=== PATIENT | female | born 1980 | race Caucasian/White ===

== ENCOUNTER 2018-03-04 18:46 | Emergency (ER) | payer OTHER ==
--- NOTE | 2018-03-04 19:22 | ERPHSYRPT ---
- History of Present Illness Time Seen by Provider: 03/04/18 19:17 Source: patient Exam Limitations: no limitations Patient Subjective Stated Complaint: INJURY TO RIGHT WRIST AFTER MOVING A PALLET TODAY Triage Nursing Assessment: AMBULATED TO ROOM PER SELF. SKIN W/D, COLOR NORMAL, RESP EASY. TENDERNESS NOTED TO RIGHT WRIST. SLIGHT SWELLING NOTED TO WRIST. ICE PACK APPLIED. Physician History: The patient is a left-handed 38-year-old female with her complaining that she injured her right wrist while at work at [employer] today. She lifted a pallet at her right wrist began to hurt. She did not fall on it nor did she hit it on anything. It hurts on the little finger side of her wrist. She took 2 ibuprofen about an hour ago. She does not request any pain medicine. She denies numbness or tingling. Her past medical history is significant for hypertension and anemia but she quit taking her medicines for these 2 illnesses. Occurred: this afternoon Method of Injury: twisted Quality: constant, aching, sharpness Severity of Pain-Max: moderate Severity of Pain-Current: moderate Extremities Pain Location: wrist: right Modifying Factors: Improves With: pain medication Associated Symptoms: none Allergies/Adverse Reactions: No Known Drug Allergies Allergy (Unverified 03/04/18 19:14) Home Medications: Amlodipine Besylate 5 mg [Norvasc 5 mg] 5 mg PO DAILY 03/04/18 [History] Ferrous Sulfate 325 mg [Feosol 325 mg] 325 mg PO DAILY 03/04/18 [History] Hx Tetanus, Diphtheria Vaccination/Date Given: Yes Hx Influenza Vaccination/Date Given: No Hx Pneumococcal Vaccination/Date Given: No - Review of Systems Constitutional: No Fever, No Chills Eyes: No Symptoms Ears, Nose, & Throat: No Symptoms Respiratory: No Cough, No Dyspnea Cardiac: No Chest Pain, No Edema, No Syncope Abdominal/Gastrointestinal: No Abdominal Pain, No Nausea, No Vomiting, No Diarrhea Genitourinary Symptoms: No Dysuria Musculoskeletal: Injury, Joint Pain, No Back Pain, No Neck Pain Skin: No Rash Neurological: No Dizziness, No Focal Weakness, No Sensory Changes Psychological: No Symptoms Endocrine: No Symptoms Hematologic/Lymphatic: No Symptoms Immunological/Allergic: No Symptoms All Other Systems: Reviewed and Negative - Past Medical History Pertinent Past Medical History: Yes Cardiac History: Hypertension Other Medical History: ANEMIA - Past Surgical History Past Surgical History: Yes Gastrointestinal: Cholecystectomy Female Surgical History: Section, Tubal Ligation - Social History Smoking Status: Current every day smoker How long have you smoked: 15 Exposure to second hand smoke: Yes Drug Use: none Patient Lives Alone: No - Female History Hx Last Menstrual Period: 02/13/18 Hx Now: No - Nursing Vital Signs Nursing Vital Signs: Initial Vital Signs Temperature 99.8 F 03/04/18 18:51 Pulse Rate 88 03/04/18 18:51 Respiratory Rate 16 03/04/18 18:51 Blood Pressure 187/124 03/04/18 18:51 O2 Sat by Pulse Oximetry 94 L 03/04/18 18:51 Pain Scale Pain Intensity 7 - Physical Exam General Appearance: alert Eyes, Ears, Nose, Throat Exam: moist mucous membranes Neck Exam: non-tender, supple Cardiovascular/Respiratory Exam: chest non-tender, normal breath sounds, regular rate/rhythm, no respiratory distress Abdominal Exam: non-tender, No guarding Back Exam: normal inspection, No vertebral tenderness Shoulder Exam: normal inspection Elbow/Forearm Exam: normal inspection Wrist Exam: soft tissue tenderness (ulnar side), No bone tenderness, No swelling Hand Exam: normal inspection Neuro/Tendon Exam: normal sensation, normal motor functions Mental Status Exam: alert, oriented x 3, cooperative Skin Exam: normal color, warm, dry SpO2 Interpretation: normal SpO2: 94 Oxygen Delivery: Room Air - Radiology Exams Right Wrist X-ray Interpretation: Interpreted by me, Negative Ordered Tests: Active Orders 24 hr Category Date Time Status WRIST (MIN 3 VIEWS) Stat Exams 03/04/18 19:22 Taken - Progress Progress: unchanged Progress Note: 03/04/18 19:57 Pt declined analgesics. Counseled pt/family regarding: diagnosis, rad results - Departure Time of Disposition: 19:58 Departure Disposition: Home Clinical Impression: Strain of right wrist Condition: Stable Critical Care Time: No Additional Instructions: You strained your right wrist at work today. The x-ray was negative. Apply ice as needed. Take naproxen 500 mg 2 times a day as needed. You were given a work excuse for tomorrow, 03/05/18. Follow-up with your primary medical doctor as needed. Prescriptions: Naproxen 500 mg PO BID PRN #30 tablet.
[2018-03-04 20:16] VITALS: BP 172/99; PULSE 72; O2SAT 99
--- NOTE | 2018-03-05 08:41 | XRAY ---
Indication: Pain following injury. Comparison: None 3 views of the right wrist demonstrates mild 1st MCP degenerative changes and mild radiocarpal joint space narrowing. No other bony, articular, or soft tissue abnormalities.
== END 2018-03-04 20:10 | disposition home or self-care (01) ==
LOC: ED 18:46
DX: S66.911A Strain of unspecified muscle, fascia and tendon at wrist and hand level, right hand, initial encounter (principal); X50.0XXA Overexertion from strenuous movement or load, initial encounter; Y93.9 Activity, unspecified; Y92.512 Supermarket, store or market as the place of occurrence of the external cause; Y99.0 Civilian activity done for income or pay
CPT/HCPCS: 73110; 99283